=== PATIENT | male | born 2000 | race Two or more races ===

== ENCOUNTER 2023-04-22 19:48 | Emergency (ER) | payer OTHER ==
[~2023-04-22] VITALS: Ht 170.2 cm; Wt 70.8 kg
== END 2023-04-23 01:41 | disposition home or self-care (01) ==
LOC: ER 19:48
DX: S70.11XA Contusion of right thigh, initial encounter (principal); X58.XXXA Exposure to other specified factors, initial encounter; Y93.61 Activity, american tackle football; Y92.89 Other specified places as the place of occurrence of the external cause; Y99.9 Unspecified external cause status; Z88.8 Allergy status to other drugs, medicaments and biological substances